=== PATIENT | male | born 1950 | race Caucasian/White ===

== ENCOUNTER 2019-02-21 19:40 | Inpatient (IN) | payer OTHER, MEDICAID ==
[~2019-02-21] VITALS: Ht 165.1 cm; Wt 60.3 kg
[2019-02-21] MEDS ORDERED: MAG HYDROX/AL HYDROX/SIMETH 30 ML LIQUID UDC PO PRN (20:45)
[2019-02-21] MEDS ORDERED: MAGNESIUM HYDROXIDE 30 ML LIQUID UDC PO PRN (20:45)
[2019-02-21] MEDS ORDERED: ACETAMINOPHEN 325 MG TABLET PO PRN (20:45)
[2019-02-21] MEDS ORDERED: TEMAZEPAM 7.5 MG CAPSULE PO PRN (20:45)
[2019-02-21 21:50] VITALS: BP 136/76
[2019-02-22 07:30] VITALS: BP_SYST 103; BP_SYST 106; BP_DIAS 63; BP_DIAS 64
[2019-02-22 20:00] VITALS: BP 114/64
[2019-02-22] MEDS ORDERED: QUETIAPINE FUMARATE 25 MG TABLET PO SCH (21:00)
[2019-02-22] MEDS: MIRTAZAPINE 15 MG TABLET PO SCH (21:01)
[2019-02-23 07:30] VITALS: BP 104/64
[2019-02-23 09:10] LABS: BASOPHILS # (AUTO) 0.1 K/uL (0.0-8.0); BASOPHILS % (AUTO) 1.3 % (0.0-2.0); EOSINOPHILS % (AUTO) 1.2 % (0.0-7.0); HEMATOCRIT 46.8 % (36.7-47.1); HEMOGLOBIN 15.7 g/dL (12.5-16.3); LYMPHOCYTES # (AUTO) 1.2 K/uL (20.0-40.0); LYMPHOCYTES % (AUTO) 29.7 % (20.5-51.5); MEAN CORPUSCULAR HEMOGLOBIN 31.8 uug (23.8-33.4); MEAN CORPUSCULAR HGB CONC 34 g/dL (32.5-36.3); MEAN CORPUSCULAR VOLUME 94.8 fL (73.0-96.2); MONOCYTES # (AUTO) 0.3 K/uL (2.0-10.0); MONOCYTES % (AUTO) 7.5 % (0.0-11.0); NEUTROPHILS # (AUTO) 2.4 K/uL (1.8-8.9); NEUTROPHILS % (AUTO) 60.3 % (38.5-71.5); PLATELET COUNT (AUTO) 203 K/uL (152-348); RED BLOOD CELL COUNT(AUTO) 4.94 MIL/uL (4.06-5.63)
[2019-02-23 09:15] LABS: BILIRUBIN,TOTAL 0.4 mg/dL (0.2-1.0); MAGNESIUM 2.1 mg/dL (1.8-2.4); PHOSPHOROUS 3.3 mg/dL (2.5-4.9); TOTAL PROTEIN, SERUM 7.6 g/dL (6.4-8.2)
[2019-02-23 16:00] VITALS: BP 118/62
[2019-02-23 20:00] VITALS: BP 106/56
[2019-02-23] MEDS: QUETIAPINE FUMARATE 100 MG TABLET PO SCH (20:42)
[2019-02-23] MEDS: MIRTAZAPINE 15 MG TABLET PO SCH (20:42)
[2019-02-23] MEDS ORDERED: QUETIAPINE FUMARATE 25 MG TABLET PO SCH (21:00)
[2019-02-24 07:30] VITALS: BP 124/77
[2019-02-24] MEDS: QUETIAPINE FUMARATE 100 MG TABLET PO SCH ×2 (09:20→20:40)
[2019-02-24 15:57] VITALS: BP 96/65
[2019-02-24] MEDS: MIRTAZAPINE 15 MG TABLET PO SCH (20:40)
[2019-02-24 21:14] VITALS: BP 112/66
[2019-02-25 07:30] VITALS: BP 110/66
[2019-02-25] MEDS: QUETIAPINE FUMARATE 100 MG TABLET PO SCH ×2 (08:43→21:02)
[2019-02-25 15:49] VITALS: BP 100/65
[2019-02-25 19:55] VITALS: BP 108/61
[2019-02-25] MEDS: MIRTAZAPINE 15 MG TABLET PO SCH (21:02)
[2019-02-26 07:30] VITALS: BP 107/65
[2019-02-26] MEDS: QUETIAPINE FUMARATE 100 MG TABLET PO SCH (08:32)
[2019-02-26] MEDS: LORAZEPAM 1 MG TABLET PO PRN (14:18)
[2019-02-26 15:19] VITALS: BP 133/72
[2019-02-26 20:13] VITALS: BP 126/75
[2019-02-26] MEDS: MIRTAZAPINE 15 MG TABLET PO SCH (21:28)
[2019-02-26] MEDS: QUETIAPINE FUMARATE 200 MG TABLET PO SCH (21:28)
[2019-02-27] MEDS: LORAZEPAM 1 MG TABLET PO PRN (00:49)
[2019-02-27 07:30] VITALS: BP 134/86
[2019-02-27] MEDS: QUETIAPINE FUMARATE 100 MG TABLET PO SCH (08:57)
[2019-02-27 16:20] VITALS: BP 124/72
[2019-02-27 20:00] VITALS: BP 109/73
[2019-02-27] MEDS: MIRTAZAPINE 15 MG TABLET PO SCH (20:42)
[2019-02-27] MEDS: QUETIAPINE FUMARATE 200 MG TABLET PO SCH (20:42)
[2019-02-28] MEDS: LORAZEPAM 1 MG TABLET PO PRN (03:05)
[2019-02-28 07:30] VITALS: BP 120/73
[2019-02-28] MEDS: QUETIAPINE FUMARATE 100 MG TABLET PO SCH (08:53)
== END 2019-02-28 14:45 | disposition home or self-care (01) | DRG 885 ==
LOC: ER 19:40 → GPS 21:33
PROVIDERS: ADMIT Psychiatry & Neurology Psychiatry
DX: F29 Unspecified psychosis not due to a substance or known physiological condition (principal); F39 Unspecified mood [affective] disorder; Z59.0 Homelessness; Z91.5 Personal history of self-harm
CPT/HCPCS: 36415; 83735; 84100; 84443; 85025; 93005; A4663